=== PATIENT | female | born 1935 | race Caucasian/White ===

== ENCOUNTER 2016-06-25 08:28 | Day surgery (SDC) | payer MEDICARE ==
[2015-04-21 14:20] VITALS: BMI 23.2
[2016-06-25] MEDS ORDERED: SULFUR COLLOID 5 MCI V IV ONE (08:49)
[2016-06-25 09:04] LABS: MPV 7.8 fL (7.4-10.4)
[2016-06-25 09:18] LABS: BLOOD UREA NITROGEN 18 MG/DL (7-17); CALC CORRECTED 9.3 MG/DL (8.4-10.2); CALCIUM 8.4 MG/DL (8.4-10.2); CALCULATED OSMOLALITY 272 MOs/Kg (270-290); CHLORIDE 101 mEq/L (98-107); GLUCOSE 118 MG/DL (70-99); SODIUM LEVEL 140 mEq/L (137-146); TOTAL PROTEIN 6.7 G/DL (6.3-8.2)
[2016-06-25] MEDS ORDERED: CEFAZOLIN 1 GM VIAL ONE (09:25)
[2016-06-25] MEDS ORDERED: ONDANSETRON HCL 4 MG/2 ML VIAL IV ONE (10:00)
[2016-06-25] MEDS ORDERED: MIDAZOLAM 2 MG/2 ML VIAL IV ONE (10:00)
[2016-06-25] MEDS ORDERED: FENTANYL 250 MCG/5 ML VIAL IV ONE (10:00)
[2016-06-25] MEDS ORDERED: PROPOFOL 200 MG/20 ML VIAL IV ONE (10:00)
[2016-06-25] MEDS ORDERED: DEXAMETHASONE 4 MG/ML VIAL IV ONE (10:00)
[2016-06-25] MEDS ORDERED: GLYCOPYRROLATE 1 MG VIAL IM ONE (10:00)
--- NOTE | 2016-06-25 10:09 | DIRPT ---
CLINICAL DATA: Left breast cancer. EXAM: NUCLEAR MEDICINE BREAST LYMPHOSCINTIGRAPHY left TECHNIQUE: Intradermal injection of radiopharmaceutical was performed at the 12 o'clock, 3 o'clock, 6 o'clock, and 9 o'clock positions around the left nipple. The patient was then sent to the operating room where the sentinel node(s) were identified and removed by the surgeon. RADIOPHARMACEUTICALS: Total of 1 mCi Millipore-filtered Technetium-99m sulfur colloid, injected in four aliquots of 0.25 mCi each. IMPRESSION: Uncomplicated intradermal injection of a total of 1 mCi Technetium-99m sulfur colloid for purposes of sentinel node identification. Electronically Signed By: Yoandy Chiu M.D. On: 06/25/2016 10:07
--- NOTE | 2016-06-25 10:49 | CAPUEKG ---
[place] Test Date: 2016-06-25 Pat Name: ALECIA OGDEN Department: Room: Gender: Female Vp Construction: : Requested By: Order Number: Reading MD: Wallace Fischer MD Measurements Intervals [place] Rate: 76 P: 47 OK: 156 QRS: -9 QRSD: 94 T: 90 QT: 406 QTc: 456 Interpretive Statements Normal sinus rhythm Possible Anterior infarct, age undetermined Abnormal ECG Electronically Signed On 06-25-16 10:48:39 EST by Wallace Fischer MD [id number]> [id number]
--- NOTE | 2016-06-25 12:40 | HIM.ANES ---
Anesthesia Evaluation & Plan Diagnoses: NEOPLASM OF UNSPECIFIED BEHAVIOR OF BREAST (06/25/16) Consented Procedure: LEFT SEGMENTAL MASTECTOMY WITH SENTINEL LYMPH NODE BIOPSY - Focused Review of Systems Cardiac History: Yes: Hx Hypertension, Hx Cardiac Disorders, Hx Abnormal Cholesterol/Hyperlipidemia, Hx Deep Vein Thrombosis (2006) EKG Rhythm: Sinus Rhythm (old NE pt unaware) HEENT: Yes: Cataract Removal, Hx Vision Problem (READING GLASSES), Other HEENT Problems Hx Other HEENT Surgery: T&A Hx Other HEENT Problems: ALLERGIC RHINNITIS Respiratory: Yes: Hx Chronic Obstructive Pulmonary Disease (COPD) Gastrointestinal: Yes: Hx Gastroesophageal Reflux Disease (DIET CONTROLLED), Hx Gastrointestinal Disorders, Hx Colonoscopy (2007), Hx Endoscopy (2007), Hx Esophageal Dilatation (2007) Genitourinary: Yes: Hx Renal Disease (STAGE 5), Hx Renal Failure (ESRD), Hx Dialysis (PERITONEAL DIALYSIS AT HOME HS) Neurological/Musculoskeletal: Yes: Hx Neurological Disorders No: HX Cerebrovascular Accident Other Neurological Problems: PERIPHERAL NEUROPATHY Psychological: No Hx Mental/Emotional Disorders Endocrine: Yes: Hx Diet Controlled Diabetes (SEE NOTE), Hx Hypothyroidism Blood/Autoimmune: Yes: Hx Anemia (IRON DEFICIENCY) No: Hx AIDS, Hx Hepatitis (type) Smoking Status: Never smoker Hx Echocardiogram (date): Yes (11/15/2014 LVH, EF 60-65%, AORTIC SCLEROSIS) Hx Chest Xray (date): Yes (03/03/2016 LUNGS CLEAR) Surgical History: Yes: T&A, Appendectomy (194), Cholecystectomy (1984), Back ( LUMBAR DISCECTOMY 2000), Knee (BILATERAL KNEE SURGERY) Other Surgical History: T&A PLACEMENT OF LEFT PERITONEAL CATHETER-CLAMPED D&C 1959, 1989, PARTIAL HYSTERECTOMY 1989 - Focused Physical Exam NPO since: 06/24/161999 Mallampati: Class II Thyromental Distance: Greater than 3 Neck: Full Range of Motion Dental: Normal - no significant findings Cardiovascular/Chest: Normal Respiratory: Lungs clear, Decreased breath sounds (right less ) Any problems with anesthesia, including nausea and vomiting?: No Any relatives with a history of Malignant Hyperthermia?: No Beta Edgar given (if appropriate): N/A Does the patient have a history of Motion Sickness-: No Other: CBC/BMP/Other 06/25/16 08:56 06/25/16 08:56 Allergies Allergy/AdvReac Type Severity Reaction Status Date / Time codeine Allergy Mild Nausea/Vomi Verified 06/25/16 10:07 ting Sulfa (Sulfonamide Allergy Mild Nausea/Vomi Verified 06/25/16 10:07 Antibiotics) ting adhesive tape Allergy Rash-Locali Verified 06/25/16 10:07 zed Home Medications Medication Instructions Recorded Last Taken Type Amlodipine Besylate [Norvasc] 10 mg PO HS 04/21/15 06/24/16 20:00 History Aspirin (Enteric Coated) [Ecotrin] 81 mg PO DAILY 04/21/15 06/21/16 08:00 History Atorvastatin Calcium [Lipitor] 80 mg PO DAILY 04/21/15 06/24/16 08:00 History Cholecalciferol (Vitamin D3) 1,000 unit PO DAILY 04/21/15 06/24/16 08:00 History [Vitamin D3] Cyanocobalamin (Vitamin B-12) 1,500 mcg PO DAILY 04/21/15 06/24/16 08:00 History [Vitamin B-12 (cyanocobalamin)] Levothyroxine Sodium [Synthroid] 25 mcg PO DAILY 04/21/15 06/24/16 08:00 History [place]-3 Fatty Acids/Fish Oil [Fish 1 each PO HS 04/21/15 06/24/16 08:00 History Oil 1,000 mg Capsule] Tramadol HCl [Ultram] 50 mg PO BID PRN 04/21/15 04/30/16 History Bupropion HCl [Bupropion HCl Sr] 100 mg PO HS 06/20/16 06/24/16 20:00 History Cetirizine HCl [Zyrtec] 10 mg PO HS 06/20/16 06/24/16 20:00 History Ferrous Sulfate 325 mg PO DAILY 06/20/16 06/24/16 20:00 History Losartan Potassium [Cozaar] 50 mg PO HS 06/20/16 06/24/16 20:00 History Spironolactone [Aldactone] 50 mg PO HS 06/20/16 06/24/16 20:00 History Height and Weight Patient's height 5 ft 6 in Patient's weight 68.039 kg BMI 23.2 Vital Signs Temperature 98.6 F 06/25/16 10:37 Pulse Rate 68 06/25/16 10:37 Respiratory Rate 18 06/25/16 10:37 Blood Pressure 156/74 06/25/16 10:37 Pulse Oxygen Saturation 92 06/25/16 10:37 METS - Level of Activity: Climbing stairs(1 flight),walking level ground, running short distance - Anesthetic Plan Anesthesia Type: General ASA Class: 4 -: I have examined this patient and reviewed the medical record. The patient has been assessed prior to anesthesia. Risks and benefits of anesthesia and anesthetic technique options have been discussed and all questions answered. The patient accepts the risk and desires me to proceed with the planned anesthetic.
[2016-06-25] MEDS ORDERED: ONDANSETRON HCL 4 MG ODT TAB PO PRN (12:43)
[2016-06-25] MEDS ORDERED: hydrALAZINE 20 MG/ML VIAL IV PRN (12:43)
[2016-06-25] MEDS ORDERED: FENTANYL 100 MCG/2 ML VIAL IV PRN ×2 (12:43)
[2016-06-25] MEDS ORDERED: ONDANSETRON HCL 4 MG/2 ML VIAL IV PRN (12:43)
[2016-06-25] MEDS ORDERED: MEPERIDINE 25 MG/ML TUBEX IV PRN (12:43)
[2016-06-25] MEDS ORDERED: LABETALOL 20 MG/4 ML SYRINGE IV PRN (12:43)
[2016-06-25] MEDS ORDERED: BUPIVACAINE 0.5% 30 ML VIAL ONE (14:15)
[2016-06-25] MEDS ORDERED: BUPIVACAINE 0.25% 30 ML VIAL ONE (14:15)
[2016-06-25] MEDS ORDERED: BUPIVACAINE 0.25%-EPINEPHRINE 1:200,000 30 ML ONE (14:41)
[2016-06-25 16:16] VITALS: PULSE 62
--- NOTE | 2016-06-25 16:21 | HIMOPRPT ---
DATE OF PROCEDURE: 06/25/16 PREOPERATIVE DIAGNOSES: Breast cancer left upper outer quadrant. POSTOPERATIVE DIAGNOSES: Same. PROCEDURES: Segmental mastectomy with sentinel lymph node biopsy. SURGEON: Zaheer Hackett MD ANESTHESIA: General. COMPLICATIONS: None. ESTIMATED BLOOD LOSS: Minimal. ANTIBIOTICS: Preoperative antibiotics given. INDICATIONS: The patient is a pleasant 81-year-old female who had been found to have a breast cancer in the left upper outer quadrant. We evaluated her felt she would benefit from segmental mastectomy and sentinel lymph node biopsy. We explained the risks and benefits of this to her including the risk of infection, bleeding and anesthesia. She also understood the possibility of needing further surgery. She understood and agreed was brought for the above- mentioned procedures. OPERATIVE NOTE: The patient was brought to the operating room placed on the operating table in the supine position. After adequate amount of general anesthesia she was prepped and draped in sterile manner. She had previously undergone injection for sentinel lymph node biopsy with radio labeled tracer. When given the okay by anesthesia after appropriate time-out an incision in the left breast at approximately the 9 o'clock position was made with scalpel dissection. Bleeding was controlled with Bovie cautery. We created skin flaps superiorly and inferiorly. This allowed us to get up to the axilla and using the gamma camera we identified a hot sentinel lymph node. We had in Vivo counts a of over 1000 an ex Vivo counts over 800. After excision counts had come down to baseline. The specimen was sent off for pathologic analysis. Hemostasis was assured. At that point we went ahead took the breast tissue from the 12 o'clock position to the 5 o'clock position and excise this off the chest wall without any difficulties. This was taken to the underneath the nipple areolar complex. This included the palpable mass. We went ahead at that point marked the specimen with a single short stitch superiorly a double short stitch anteriorly and finally a double long stitch laterally. Under fluoroscopy we could see that the clip was in the center of the specimen. At that point the wound was irrigated. Hemostasis was assured and a 10 Turkish drain was placed through a separate stab wound and secured with a silk suture. We then brought the skin flaps together with interrupted pop-off Vicryl sutures of 0 Vicryl. Finally 4 0 Monocryl was used to bring the skin together and Dermabond tissue adhesive was applied and allowed to dry. Sponge counts and needle counts were correct x2. Dry dressing was applied the patient was awoke and taken recover room in excellent condition with correct sponge counts needle counts.
[2016-06-25 17:03] VITALS: TEMP 97.8
[2016-06-25 17:52] VITALS: BP 133/57
--- NOTE | 2016-06-25 17:52 | SC.ANESPOS ---
Post-Anesthesia Note LOC: Fully Awake Post-Anesthesia Assessment: Awake, Returned to Baseline, Hemodynamically Stable , Pain Control Adequate Phase I & II Recovery Complete: Yes Apparent Anesthesia Complication: No : N - Vital Signs Blood Pressure: 133/57 Pulse: 62 Resp Rate: 16 O2 Sat: 98 Temp: 97.8 F
== END 2016-06-25 16:45 | disposition home or self-care (01) ==
LOC: SDC 08:28 → EDSTATUS 09:00 → SDC 16:45
PROVIDERS: ATTEND Surgery
PROC: 07B60ZX Excision of Left Axillary Lymphatic, Open Approach, Diagnostic (ICD-10-PCS; 2016-06-25)
PROC: 0HBU0ZZ Excision of Left Breast, Open Approach (ICD-10-PCS; principal; 2016-06-25 11:20)
DX: C50.412 Malignant neoplasm of upper-outer quadrant of left female breast (principal); I12.0 Hypertensive chronic kidney disease with stage 5 chronic kidney disease or end stage renal disease; N18.6 End stage renal disease; E78.5 Hyperlipidemia, unspecified; J44.9 Chronic obstructive pulmonary disease, unspecified; K21.9 Gastro-esophageal reflux disease without esophagitis; E03.9 Hypothyroidism, unspecified; E11.9 Type 2 diabetes mellitus without complications; G62.9 Polyneuropathy, unspecified; M19.90 Unspecified osteoarthritis, unspecified site; Z99.2 Dependence on renal dialysis; Z79.899 Other long term (current) drug therapy
CPT/HCPCS: 19301; 38525; 38792; 80053; 85027; 93005; A9541; J0690; J1100; J2405; J2550; J3010; J3490; J2250; S0020